=== PATIENT | female | born 1960 | race Caucasian/White ===

== ENCOUNTER 2016-12-02 10:42 | Emergency (ER) | payer OTHER | END 2016-12-02 12:40 | disposition home or self-care (01) | LOC: ER 10:42 | DX: H66.91 Otitis media, unspecified, right ear (principal); I10 Essential (primary) hypertension; Z90.711 Acquired absence of uterus with remaining cervical stump; Z88.1 Allergy status to other antibiotic agents; Z88.2 Allergy status to sulfonamides; Z88.6 Allergy status to analgesic agent; Z88.8 Allergy status to other drugs, medicaments and biological substances ==

== ENCOUNTER 2016-12-05 11:28 | Emergency (ER) | payer OTHER | END 2016-12-05 13:12 | disposition home or self-care (01) | LOC: ER 11:28 | DX: J01.00 Acute maxillary sinusitis, unspecified (principal); I10 Essential (primary) hypertension; Z90.711 Acquired absence of uterus with remaining cervical stump; Z79.899 Other long term (current) drug therapy; Z88.1 Allergy status to other antibiotic agents; Z88.2 Allergy status to sulfonamides; Z88.5 Allergy status to narcotic agent; Z88.6 Allergy status to analgesic agent ==

== ENCOUNTER 2016-12-19 05:59 | Emergency (ER) | payer OTHER | END 2016-12-19 07:07 | disposition home or self-care (01) | LOC: ER 05:59 | DX: H92.03 Otalgia, bilateral (principal); R51 Headache; I10 Essential (primary) hypertension; Z90.711 Acquired absence of uterus with remaining cervical stump; Z88.1 Allergy status to other antibiotic agents; Z88.5 Allergy status to narcotic agent; Z88.6 Allergy status to analgesic agent; Z88.8 Allergy status to other drugs, medicaments and biological substances; Z88.2 Allergy status to sulfonamides ==